=== PATIENT | male | born 1965 | race Caucasian/White ===

== ENCOUNTER 2021-12-09 19:14 | Emergency (ER) | payer SELFPAY ==
[~2021-12-09] VITALS: Ht 167.6 cm; Wt 75.0 kg
[2021-12-09 19:50] VITALS: BP 126/71
[2021-12-09] MEDS ORDERED: IBUPROFEN 600MG TABLET PO ONE (20:00)
== END 2021-12-10 01:45 | disposition home or self-care (01) ==
LOC: ER 19:14
DX: M79.18 Myalgia, other site (principal); R45.851 Suicidal ideations; F31.9 Bipolar disorder, unspecified; F20.9 Schizophrenia, unspecified
CPT/HCPCS: 99283